=== PATIENT | male | born 1965 | race Caucasian/White ===

== ENCOUNTER → 2021-10-12 | Outpatient (CLI) | payer OTHER ==
--- NOTE | 2021-10-13 07:11 | US ---
EXAMINATION TYPE: US thyroid st tissue head/neck DATE OF EXAM: 10/12/2021 COMPARISON: NONE CLINICAL HISTORY: E03.9 ACQUIRED HYPOTHYROIDISM. hypothyroidism, on meds GLAND SIZE: Right Lobe: 3.8 x 1.1 x 1.7 cm Overall Parenchyma: heterogenous Left Lobe: 2.7 x 1.1 x 1.9 cm Overall Parenchyma: heterogeneous Isthmus Thickness: 0.4 cm NODULES RIGHT: # of nodules measured on right: 0 LEFT: # of nodules measured on left: 0 ISTHMUS: # of nodules measured in the isthmus: 0 Bilateral neck scanned, no evidence of lymphadenopathy. IMPRESSION: Glandular heterogeneity. Otherwise unremarkable study.
--- NOTE | 2021-10-13 11:30 | CT ---
EXAMINATION TYPE: CT chest wo con DATE OF EXAM: 10/12/2021 COMPARISON: None HISTORY: Cough w/hemmorage. CT DLP: 383 mGycm. Automated Exposure Control for Dose Reduction was Utilized. TECHNIQUE: CT scan of the thorax is performed without IV contrast. FINDINGS: Lack of intravenous contrast could compromise sensitivity of the exam. LUNGS: The lungs are grossly clear, there is no concerning parenchymal mass or nodule identified. Pa raseptal emphysematous changes are present in the right upper lobe and left upper lobe, some mild int erstitial changes are also present, there is thickened interlobular septal pleural lines. There is no pleural effusion or pneumothorax seen. The tracheobronchial tree is patent. MEDIASTINUM: Lack of IV contrast is noted to limit evaluation for mediastinal and especially hilar ad enopathy. There are no definitive greater than 1 cm hilar or mediastinal lymph nodes. No cardiomega ly or pericardial effusion is seen. There are coronary artery calcifications present. OTHER: Low-density within the liver likely represents hepatic steatosis with focal fatty sparing maile cent to the gallbladder. There is thoracic spondylosis. Multiple old left-sided rib fractures are pre sent posteriorly which appear healed.. IMPRESSION: Mild emphysema, interstitial lung disease. Coronary artery disease. Hepatic steatosis.
== END ==
LOC: RADUSWWP 15:35
PROVIDERS: ATTEND Family Medicine
DX: E03.9 Hypothyroidism, unspecified (principal); J43.9 Emphysema, unspecified; J84.9 Interstitial pulmonary disease, unspecified; I25.10 Atherosclerotic heart disease of native coronary artery without angina pectoris; K76.0 Fatty (change of) liver, not elsewhere classified; E07.89 Other specified disorders of thyroid
CPT/HCPCS: 71250; 76536

== ENCOUNTER → 2021-12-20 | Outpatient (CLI) | payer OTHER ==
--- NOTE | 2021-12-21 16:01 | US ---
EXAMINATION TYPE: US abdomen complete DATE OF EXAM: 12/20/2021 COMPARISON: NONE CLINICAL HISTORY: R79.89 Elevated LFTS. Abnormal labs. No pain. EXAM MEASUREMENTS: Liver Length: 16.8 cm Gallbladder Wall: 0.2 cm CBD: 0.5 cm Spleen: 11.4 cm Right Kidney: 10.5 x 5.3 x 5.0 cm Left Kidney: 10.5 x 4.7 x 6.1 cm Pancreas: Head and tail obscured by overlying bowel gas Liver: Increased attenuation, decreased visualization of vessels suggestive of fatty infiltrate. Ec hogenic and coarse. Hypoechoic area adjacent to GB, possible focal fatty sparing = 1.3 x 1.3 x 1.4 c m Gallbladder: wnl Evidence for sonographic Avina's sign: neg CBD: wnl Spleen: wnl Right Kidney: No hydronephrosis or masses seen Left Kidney: No hydronephrosis or masses seen Upper IVC: wnl Abd Aorta: No AAA visualized at time of scan IMPRESSION: 1. Fatty infiltration liver with mild hepatomegaly
== END | disposition home or self-care (01) ==
LOC: RADUSWWP 15:36
PROVIDERS: ATTEND Family Medicine
DX: K76.0 Fatty (change of) liver, not elsewhere classified (principal); R16.0 Hepatomegaly, not elsewhere classified
CPT/HCPCS: 76700

== ENCOUNTER 2022-04-17 09:45 | Emergency (ER) | payer OTHER ==
[2022-04-17 09:57] VITALS: RESP 18; TEMP 98
[2022-04-17] MEDS ORDERED: dexAMETHasone 2 MG TAB PO STA (10:44)
--- NOTE | 2022-04-17 10:48 | ED ---
ENT HPI - General Chief complaint: ENT Stated complaint: lt ear Time Seen by Provider: 04/17/22 10:06 Source: patient, family, RN notes reviewed Mode of arrival: ambulatory Limitations: no limitations - History of Present Illness Initial comments: 58-year-old male presents emergency Department with chief complaint of left ear pain, sore throat. Patient states started yesterday states he had severe pain is a 2 year but not has resolved and noticed some drainage from his left ear which looked bloody. Patient states that he was swimming in a pond in unsure if this related. He did admit that he dove into the pond. Denies having popping sensation. Patient has no point a headache no neck pain or neck stiffness. Patient states that he developed a sore throat and is noticed that his uvula is swollen and coated. He states that they are on vaccinations. Denies any sick contacts denies any history of HIV states that he is a diabetic. - Related Data Previous Rx's Medication Instructions Recorded Azithromycin [Zithromax] 500 mg PO DAILY #5 tab 04/17/22 Nystatin [Nystatin Oral Susp] 10 ml PO QID #400 ml 04/17/22 Allergies Allergy/AdvReac Type Severity Reaction Status Date / Time Penicillins Allergy Unknown Verified 04/17/22 09:59 Review of Systems ROS Statement: Those systems with pertinent positive or pertinent negative responses have been documented in the HPI. ROS Other: All systems not noted in ROS Statement are negative. Past Medical History Past Medical History: Diabetes Mellitus, Hypertension Past Psychological History: No Psychological Hx Reported Smoking Status: Current every day smoker Past Alcohol Use History: Occasional Past Drug Use History: None Reported General Exam Limitations: no limitations General appearance: alert, in no apparent distress Head exam: Present: atraumatic, normocephalic, normal inspection Eye exam: Present: normal appearance, PERRL, EOMI. Absent: scleral icterus, conjunctival injection, periorbital swelling ENT exam: Present: mucous membranes moist. Absent: normal oropharynx (Swollen uvula with erythema and white coating noted), TM's normal bilaterally (Left TM bloody, obscured), normal external ear exam (Dry blood in left canal) Neck exam: Present: normal inspection, full ROM. Absent: tenderness, meningismus, lymphadenopathy Respiratory exam: Present: normal lung sounds bilaterally. Absent: respiratory distress, wheezes, rales, rhonchi, stridor Cardiovascular Exam: Present: regular rate, normal rhythm, normal heart sounds. Absent: systolic murmur, diastolic murmur, rubs, gallop, clicks Course Vital Signs 04/17/22 09:51 Temperature 98.0 F Pulse Rate 71 Respiratory 18 Rate Blood Pressure 187/96 O2 Sat by Pulse 97 Oximetry Medical Decision Making - Medical Decision Making 56-year-old presented for sore throat and left ear pain patient has ruptured left TM blood noted patient started on oral antibiotics patient has swollen uvula was given a dose of steroids, mouthwash will have ENT follow-up return parameters were discussed. Disposition Clinical Impression: Uvulitis, Rupture of left tympanic membrane Disposition: HOME SELF-CARE Condition: Stable Instructions (If sedation given, give patient instructions): Uvulitis (ED) Additional Instructions: Please return to the Emergency Department if symptoms worsen or any other concerns. Prescriptions: Nystatin [Nystatin Oral Susp] 10 ml PO QID #400 ml Azithromycin [Zithromax] 500 mg PO DAILY #5 tab Is patient prescribed a controlled substance at d/c from ED?: No Referrals: Yoly Chris MD [Primary Care Provider] - 1-2 days Winston Reed DO [Doctor of Osteopathic Medicine] - 1-2 days Time of Disposition: 10:48
[2022-04-17 11:21] VITALS: BP 170/89; PULSE 67
== END 2022-04-17 11:24 | disposition home or self-care (01) ==
LOC: EC 09:45
DX: K12.2 Cellulitis and abscess of mouth (principal); H72.92 Unspecified perforation of tympanic membrane, left ear; E11.9 Type 2 diabetes mellitus without complications; I10 Essential (primary) hypertension; F17.200 Nicotine dependence, unspecified, uncomplicated; Z88.0 Allergy status to penicillin
CPT/HCPCS: 99282; J8540

== ENCOUNTER → 2022-05-30 | Outpatient (CLI) | payer OTHER ==
[2022-05-30 18:01] LABS: Basophils # (A) 0.05 X 10*3/uL (0.00-0.10); Basophils % (A) 0.8 %; Eosinophils # (A) 0.15 X 10*3/uL (0.04-0.35); Eosinophils % (A) 2.3 %; HCT 44.8 % (39.6-50.0); HGB 15.1 g/dL (13.0-17.0); Immature Grans, Automated 0.5 %; Lymphocytes # (A) 2.37 X 10*3/uL (0.90-5.00); Lymphocytes % (A) 35.8 %; MCH 32.8 pg (27.0-32.0); MCHC 33.7 g/dL (32.0-37.0); MCV 97.2 fL (80.0-97.0); Mean Platelet Volume 10.6 fL (9.5-12.2); Monocytes # (A) 0.66 X 10*3/uL (0.20-1.00); NRBC Per 100 WBC 0 /100 WBCS (0.0-0.0); Neutrophils # (A) 3.36 X 10*3/uL (1.80-7.70); Neutrophils % (A) 50.6 %; Platelet Count 125 X 10*3/uL (140-440); RBC 4.61 X 10*6/uL (4.40-5.60); WBC 6.62 X 10*3/uL (4.50-10.00)
[2022-05-30 18:32] LABS: Protein, Total 7.6 g/dL (6.2-8.2)
[2022-05-30 18:40] LABS: Hepatitis B Surface Antigen Nonreactive (Nonreactive); Hepatitis C IgG Antibody Nonreactive (Nonreactive)
[2022-05-30 18:41] LABS: % Iron Saturation 35.71 (15.00-50.00); African American GFR (CKD) 110.4 (60.0-200.0); Albumin 4.4 g/dL (3.8-4.9); Albumin/Globulin Ratio 1.3 (1.60-3.17); Anion Gap 11.1 mmol/L (10.00-18.00); BUN/Creat Ratio 16.28 Ratio (12.00-20.00); Blood Urea Nitrogen 14.6 mg/dL (9.0-27.0); Calcium 9.1 mg/dL (8.7-10.3); Carbon Dioxide 23.9 mmol/L (20.0-27.5); Globulin 3.4 g/dL (1.6-3.3); Non-African American GFR(CKD) 95.3 (60.0-200.0); Potassium 4.3 mmol/L (3.5-5.5); Total Bilirubin 0.8 mg/dL (0.30-1.20); Total Protein 7.8 g/dL (6.2-8.2)
[2022-05-30 18:58] LABS: Ceruloplasmin 18.6 mg/dL (20.0-60.0)
[2022-05-31 17:01] LABS: Gamma Globulin 1.46 g/dL (0.70-1.50)
[2022-06-01 07:44] LABS: Smooth Muscle Antibody 9 UNITS (<20)
== END | disposition home or self-care (01) ==
LOC: LABWHC1 11:49
PROVIDERS: ATTEND Internal Medicine Gastroenterology
DX: R74.01 Elevation of levels of liver transaminase levels (principal)
CPT/HCPCS: 36415; 80053; 82103; 82104; 82390; 82728; 83516; 83540; 83550; 84165; 85025; 86038; 86803; 87340

== ENCOUNTER → 2022-11-21 | Outpatient (CLI) | payer OTHER ==
[2022-11-21 16:12] LABS: African American GFR (CKD) 99.6 (60.0-200.0); Albumin 4.4 g/dL (3.8-4.9); Albumin/Globulin Ratio 1.27 (1.60-3.17); Anion Gap 12.4 mmol/L (10.00-18.00); BUN/Creat Ratio 15.63 Ratio (12.00-20.00); Blood Urea Nitrogen 15.3 mg/dL (9.0-27.0); Calcium 9.1 mg/dL (8.7-10.3); Carbon Dioxide 24.5 mmol/L (20.0-27.5); Globulin 3.5 g/dL (1.6-3.3); Non-African American GFR(CKD) 85.9 (60.0-200.0); Potassium 4.3 mmol/L (3.5-5.5); Total Bilirubin 1.2 mg/dL (0.30-1.20); Total Protein 7.9 g/dL (6.2-8.2)
[2022-11-21 16:21] LABS: Basophils # (A) 0.05 X 10*3/uL (0.00-0.10); Basophils % (A) 0.6 %; Eosinophils # (A) 0.27 X 10*3/uL (0.04-0.35); Eosinophils % (A) 3.2 %; HCT 44.6 % (39.6-50.0); HGB 15.8 g/dL (13.0-17.0); Immature Grans, Automated 0.5 %; Lymphocytes # (A) 2.97 X 10*3/uL (0.90-5.00); Lymphocytes % (A) 35.3 %; MCH 33.9 pg (27.0-32.0); MCHC 35.4 g/dL (32.0-37.0); MCV 95.7 fL (80.0-97.0); Mean Platelet Volume 11.1 fL (9.5-12.2); Monocytes # (A) 0.88 X 10*3/uL (0.20-1.00); Monocytes % (A) 10.5 %; NRBC Per 100 WBC 0 /100 WBCS (0.0-0.0); Neutrophils # (A) 4.21 X 10*3/uL (1.80-7.70); Neutrophils % (A) 49.9 %; Platelet Count 116 X 10*3/uL (140-440); RBC 4.66 X 10*6/uL (4.40-5.60); RBC Morphology NORMAL; RDW 11.7 % (11.5-14.5); WBC 8.42 X 10*3/uL (4.50-10.00)
== END | disposition home or self-care (01) ==
LOC: LABWHC1 10:18
PROVIDERS: ATTEND Internal Medicine Gastroenterology
DX: R77.8 Other specified abnormalities of plasma proteins (principal); R74.01 Elevation of levels of liver transaminase levels
CPT/HCPCS: 36415; 80053; 85025

== ENCOUNTER → 2024-09-26 | Outpatient (CLI) | payer OTHER ==
--- NOTE | 2024-09-26 17:41 | XR ---
EXAMINATION TYPE: XR shoulder complete RT DATE OF EXAM: 09/26/2024 5:37 PM INDICATION: Patient age:Male; 58 years old; Reason for study: S46.811A STRAIN OF MUSC/FASC/TEND AT SHLDR/UP ARM,; pain COMPARISON: None TECHNIQUE: The right shoulder was examined in AP, internally rotated and scapular Y projections. . FINDINGS: No evidence of acute osseous pathology, joint dislocation, or soft tissue swelling. The remaining por tions of the visualized chest are unremarkable. IMPRESSION: No acute osseous pathology. [facility], , 09/26/2024 5:38 PM
== END | disposition home or self-care (01) ==
LOC: RADXRMAIN 17:07
PROVIDERS: ATTEND Emergency Medicine
DX: S46.811A Strain of other muscles, fascia and tendons at shoulder and upper arm level, right arm, initial encounter (principal); X58.XXXA Exposure to other specified factors, initial encounter

== ENCOUNTER → 2024-10-14 | Outpatient (CLI) | payer OTHER ==
--- NOTE | 2024-10-14 14:58 | MR ---
EXAMINATION TYPE: MR shoulder RT wo con DATE OF EXAM: 10/14/2024 2:48 PM COMPARISON: Right shoulder x-ray for very 18/03/2025 CLINICAL INDICATION: Male, 58 years old with history of S46.811D STRAIN OF MUSC/FASC/TEND AT SHLDR/UP ARM, Right shoulder/arm pain due to strain 09-06-2024, difficult to raise arm, IV Contrast: cc (None if empty) TECHNIQUE: Multiplanar, multisequence imaging of the right shoulder is performed without contrast. FINDINGS: Rotator Cuff: Full thickness retracted tears of the infraspinatus tendon to level of the labrum. Sign ificant tear of the supraspinatus tendon with a few anterior fibers remaining intact. There is some i ntramuscular edema particularly in the infraspinatus tendon. Full-thickness retracted tear of the sub scapularis tendon. There appears to be significant atrophy of the visualized portion of the subscapul addi muscle bulk. Acromioclavicular Joint: Mild to moderate narrowing with subchondral cystic change. Mild spurring. Mi ld/moderate capsular hypertrophy. Glenohumeral Joint: Moderate to large size joint effusion. No significant spurring. Labrum: The labrum appears grossly intact given limitation of non-arthrogram study. Biceps Tendon: The long head of biceps is dislocated anterior medially from normal location within bi cipital groove. Bone marrow signal: Some heterogeneous increased T2 signal lateral aspect of the humeral head Other: No additional significant abnormality is appreciated. IMPRESSION: 1. Full-thickness retracted tears of the infraspinatus tendon and subscapularis tendons. There is ass ociated anterior medial dislocation of long head of biceps tendon. 2. Significant full-thickness tear of the subscapularis tendon. 3. Moderate to large sized glenohumeral joint effusion. Advised orthopedic surgical evaluation. [facility], , 10/14/2024 2:55 PM
== END | disposition home or self-care (01) ==
LOC: RADMRIMAIN 14:14
PROVIDERS: ATTEND Emergency Medicine
DX: S46.811D Strain of other muscles, fascia and tendons at shoulder and upper arm level, right arm, subsequent encounter (principal); M25.411 Effusion, right shoulder